=== PATIENT | male | born 1980 | race Caucasian/White ===

== ENCOUNTER 2018-07-16 17:23 | Emergency (ER) | payer BC ==
[2018-07-16 18:04] VITALS: BP 119/89; PULSE 74; O2SAT 96
--- NOTE | 2018-07-16 18:09 | ERPHSYRPT ---
- History of Present Illness Time Seen by Provider: 07/16/18 18:05 Source: patient Exam Limitations: no limitations Patient Subjective Stated Complaint: states got fishing hook in second digit left hand just prior to arrival. has been unable to remove it. Triage Nursing Assessment: small treble hook in second digit left hand. minimal bleeding. Physician History: states got fishing hook in second digit left hand just prior to arrival. has been unable to remove it. Timing/Duration: today Allergies/Adverse Reactions: No Known Drug Allergies Allergy (Unverified 07/16/18 18:04) Home Medications: Escitalopram Oxalate 10 mg [Lexapro 10 MG] 10 mg PO DAILY 07/16/18 [History] Hx Tetanus, Diphtheria Vaccination/Date Given: No Hx Influenza Vaccination/Date Given: No Hx Pneumococcal Vaccination/Date Given: No - Review of Systems Constitutional: No Symptoms Eyes: No Symptoms Ears, Nose, & Throat: No Symptoms Respiratory: No Symptoms Abdominal/Gastrointestinal: No Symptoms Musculoskeletal: No Symptoms Skin: Other (fish hook in left thumb) - Past Medical History Pertinent Past Medical History: Yes GI Medical History: Gallbladder Disease, Ulcer Psycho-Social History: Anxiety - Past Surgical History Past Surgical History: Yes Gastrointestinal: Cholecystectomy - Social History Smoking Status: Never smoker Exposure to second hand smoke: No Drug Use: none Patient Lives Alone: No - Nursing Vital Signs Nursing Vital Signs: Initial Vital Signs Temperature 98.1 F 07/16/18 17:42 Pulse Rate 74 07/16/18 17:42 Respiratory Rate 16 07/16/18 17:42 Blood Pressure 119/89 07/16/18 17:42 O2 Sat by Pulse Oximetry 96 07/16/18 17:42 Pain Scale Pain Intensity 2 - Physical Exam General Appearance: no apparent distress Eye Exam: PERRL/EOMI Skin Exam: other (fish hook in left thumb) SpO2: 96 Procedures - Additional Procedures Progress: fish hook is removed with hemostat forcep without any complication - Course Nursing assessment & vital signs reviewed: Yes Ordered Tests: Active Orders 24 hr Category Date Time Status Sutures STAT Care 07/16/18 18:04 Active - Progress Progress: improved Counseled pt/family regarding: diagnosis, need for follow-up - Departure Departure Disposition: Home Clinical Impression: Fish hook injury of finger Qualifiers: Encounter type: initial encounter Laterality: left Qualified Code(s): S69.92XA - Unspecified injury of left wrist, hand and finger(s), initial encounter Condition: Stable Critical Care Time: No Instructions: Removal of Foreign Body in Skin Additional Instructions: Discharge/Care Plan MATT ALVAREZ was seen on 07/16/18 in the Emergency Room. The patient was counseled regarding Diagnosis,Lab results, Imaging studies, need for follow up and when to return to the Emergency Room. Prescriptions given: Discharge Note I have spoken with the patient and/or caregivers. I have explained the patient' s condition, diagnosis and treatment plan based on the information available to me at this time. I have answered the patient's and/or caregiver's questions and addressed any concerns. The patient and/or caregivers have as good understanding of the patient's diagnosis, condition and treatment plan as can be expected at this point. The vital signs have been stable. The patient's condition is stable and appropriate for discharge from the emergency department. The patient will pursue further outpatient evaluation with the primary care physician or other designated or consulting physician as outlined in the discharge instructions. The patient and/or caregivers are agreeable to this plan of care and follow-up instructions have been explained in detail. The patient and/or caregivers have received these instruction. The patient/and or caregivers are aware that any significant change in condition or worsening of symptoms should prompt an immediate return to this or the closest emergency department or call 911. Prescriptions: Cephalexin Mh 500 mg [Keflex 500 mg] 500 mg PO Q6H #40 capsule
[2018-07-16] MEDS ORDERED: KEFLEX 500 MG ONE (18:11)
[2018-07-16] MEDS: KEFLEX 500 MG PO ONE (18:13)
== END 2018-07-16 18:32 | disposition home or self-care (01) ==
LOC: ED 17:23
DX: S69.92XA Unspecified injury of left wrist, hand and finger(s), initial encounter (principal); W45.8XXA Other foreign body or object entering through skin, initial encounter; Y92.9 Unspecified place or not applicable; Y99.8 Other external cause status; F41.9 Anxiety disorder, unspecified
CPT/HCPCS: 99283; A9270-GY